=== PATIENT | male | born 1960 | race African-American/Black ===

== ENCOUNTER 2019-06-06 18:26 | Emergency (ER) | payer MEDICAID, OTHER ==
[~2019-06-06] VITALS: Ht 175.3 cm; Wt 100.0 kg
[2019-06-07] MEDS ORDERED: ONDANSETRON HCL 4MG/2ML INJ IV STA (00:38)
[2019-06-07] MEDS ORDERED: MORPHINE SULFATE 4 MG/ML CPJ (NOT FOR IM USE) IV STA (00:38)
[2019-06-07] MEDS ORDERED: SODIUM CHLORIDE 0.9% 1,000 ML IV ONE (00:38)
[2019-06-07] MEDS ORDERED: VANCOMYCIN 1 G PREMIX 200 ML IV ONE ×2 (00:45→19:30)
[2019-06-07] MEDS ORDERED: CLINDAMYCIN 600 MG in DEXTROSE 5% WATER 50 ML IV ONE (00:45)
[2019-06-07] MEDS ORDERED: PIPERACILLIN/TAZ 3.375G PREMIX 50 ML IV ONE ×2 (00:45→19:30)
[2019-06-07 01:24] LABS: HEMATOCRIT. 41.8 % (42.0-52.0); HEMOGLOBIN. 13.5 g/dL (14.0-18.0); MEAN CORPUSCULAR HEMOGLOBIN 27.8 pg (28.0-32.0); MEAN CORPUSCULAR VOLUME 86.1 fL (80.0-94.0); PLATELET 427 x1000/uL (130-400); RED BLOOD CELL COUNT 4.86 mill/uL (4.7-6.1); RED CELL DISTRIBUTION WIDTH 14.1 % (11.6-14.6)
[2019-06-07 01:42] LABS: CHLORIDE 97 mEq/L (98-107)
[2019-06-07 01:46] LABS: PLATELET ESTIMATE SLIGHTLY INCREASED
[2019-06-07 01:50] LABS: ETHANOL BLOOD < 10 mg/dL
[2019-06-07] MEDS ORDERED: CLINDAMYCIN 600 MG in SODIUM CHLORIDE 0.9% 50 ML IV NR (02:00)
[2019-06-07] MEDS ORDERED: AMLODIPINE 5MG TABLET PO ONE (13:45)
[2019-06-07 13:53] LABS: C REACTIVE PROTEIN QUANT > 190.0 mg/L (0.0-3.0)
[2019-06-08] MEDS ORDERED: AMLODIPINE 10MG TABLET PO NR (04:00)
[2019-06-08] MEDS ORDERED: VANCOMYCIN 1 G PREMIX 200 ML IV ONE (05:45)
[2019-06-08] MEDS ORDERED: PIPERACILLIN/TAZ 3.375G PREMIX 50 ML IV ONE (05:45)
[2019-06-08 12:13] LABS: *AMPHETAMINES SCREEN URINE NEGATIVE (NEGATIVE); *BARBITURATES SCREEN URINE NEGATIVE (NEGATIVE); CANNABINOID URINE SCREEN NEGATIVE (NEGATIVE); METHADONE URINE SCREEN NEGATIVE (NEGATIVE); OPIATES URINE SCREEN NEGATIVE (NEGATIVE); PHENCYCLIDINE URINE SCREEN NEGATIVE (NEGATIVE)
[2019-06-08 12:14] LABS: *BENZODIAZEPINES SCREEN URINE NEGATIVE (NEGATIVE); *COCAINE SCREEN URINE NEGATIVE (NEGATIVE)
[2019-06-08] MEDS ORDERED: CLONIDINE 0.2MG TABLET PO ONE (17:00)
[2019-06-08] MEDS ORDERED: PIPERACILLIN/TAZOBACTAM 3.375 G in DEXT 5% WATER 100 ML IV SCH (17:00)
[2019-06-08] MEDS ORDERED: VANCOMYCIN 1 G PREMIX 200 ML IV SCH (18:45)
[2019-06-08] MEDS ORDERED: INSULIN REGULAR (HUMULIN R) 300UNITS/3ML SUBCUT ONE (21:15)
[2019-06-08] MEDS ORDERED: CLONIDINE 0.1MG TABLET PO ONE (21:15)
[2019-06-08] MEDS ORDERED: ACETAMINOPHEN 325MG TABLET PO ONE (22:15)
[2019-06-08 23:34] VITALS: BP 164/94
== END 2019-06-08 23:49 | disposition short-term general hospital (02) ==
LOC: ER 18:26
DX: L03.011 Cellulitis of right finger (principal); M65.841 Other synovitis and tenosynovitis, right hand; R03.0 Elevated blood-pressure reading, without diagnosis of hypertension; R00.0 Tachycardia, unspecified
CPT/HCPCS: 36415; 80202; 80305; 82962; 93005; 96365; 96366; 96368; 96372; 96375; 99285; J1815; J2270; J2405; J2543; J3370; J3490; J7030; J7060; 96367; 99284

== ENCOUNTER 2022-09-16 21:34 | Inpatient (IN) | payer MEDICAID ==
[~2022-09-16] VITALS: Ht 172.7 cm; Wt 101.6 kg
[2022-09-17] MEDS: SODIUM CHLORIDE 0.9% 1,000 ML IV SCH (00:10)
[2022-09-17] MEDS ORDERED: VANCOMYCIN 1G PREMIX 200 ML IV ONE (03:45)
[2022-09-17] MEDS ORDERED: PIPERACILLIN/TAZ 3.375G PREMIX 50 ML IV ONE (03:45)
[2022-09-17 05:40] LABS: HEMATOCRIT. 32.3 % (42.0-52.0); HEMOGLOBIN. 10.7 g/dL (14.0-18.0); MEAN CORPUSCULAR HEMOGLOBIN 27.3 pg (28.0-32.0); MEAN CORPUSCULAR VOLUME 82.5 fL (80.0-94.0); MEAN PLATELET VOLUME 8.5 fl (7.4-10.4); PLATELET 556 x1000/uL (130-400); RED BLOOD CELL COUNT 3.92 mill/uL (4.7-6.1); RED CELL DISTRIBUTION WIDTH 14.5 % (11.6-14.6)
[2022-09-17 05:50] LABS: CHLORIDE 97 mEq/L (98-107)
[2022-09-17 06:09] LABS: PLATELET ESTIMATE INCREASED
[2022-09-17] MEDS ORDERED: SODIUM CHLORIDE 0.9% 1000ML BAG (SEPSIS BOLUS) IV ONE (06:15)
[2022-09-17 07:07] LABS: INR 1.2; PROTHROMBIN TIME 12.6 sec (9.6-11.0)
[2022-09-17] MEDS ORDERED: ACETAMINOPHEN 325MG TABLET PO PRN (09:30)
[2022-09-17] MEDS ORDERED: HYDROCODONE/ACETAMINOPHEN 5/325MG TABLET PO PRN (09:30)
[2022-09-17] MEDS ORDERED: CLONIDINE 0.1MG TABLET PO PRN (09:30)
[2022-09-17] MEDS ORDERED: IPRATROPIUM/ALBUTEROL 0.5-3(2.5)MG/3ML NEB HHN PRN (09:30)
[2022-09-17] MEDS ORDERED: MAGNESIUM/ALUMINUM HYDROXIDE/SIMETHICONE 30ML UDC PO PRN (09:30)
[2022-09-17] MEDS ORDERED: GUAIFENESIN 200MG/10ML SUGAR FREE UDC PO PRN (09:30)
[2022-09-17] MEDS ORDERED: DEXTROSE 50% WATER 50ML SYRINGE IV PRN (09:30)
[2022-09-17] MEDS ORDERED: ONDANSETRON HCL 4MG/2ML INJ IV PRN (09:30)
[2022-09-17] MEDS ORDERED: HYDROCODONE/ACETAMINOPHEN 7.5/325MG TABLET PO PRN (09:30)
[2022-09-17] MEDS ORDERED: INSULIN LISPRO 100 UNITS/ML SUBCUT NR (10:00)
[2022-09-17] MEDS ORDERED: NALOXONE HCL 0.4MG/ML VIAL IV PRN (10:15)
[2022-09-17] MEDS ORDERED: PIPERACILLIN/TAZOBACTAM 3.375 G in DEXTROSE 5% WATER 50 ML IV SCH (12:01)
[2022-09-17 12:17] LABS: PHOSPHORUS 3.9 mg/dL (2.5-4.9); T4 FREE 1.22 ng/dL (0.76-1.46)
[2022-09-17 12:34] LABS: FOLIC ACID (FOLATE) SERUM 8.9 ng/mL (>5.38)
[2022-09-17 13:00] VITALS: BP 160/96
[2022-09-17] MEDS ORDERED: VANCOMYCIN 1G PREMIX 200 ML IV SCH (13:00)
[2022-09-17] MEDS: BLOOD SUGAR DIAGNOSTIC STRIP TEST SCH ×3 (13:00→21:40)
[2022-09-17] MEDS: INSULIN LISPRO 100 UNITS/ML SUBCUT SCH ×2 (13:11→22:00)
[2022-09-17 14:00] VITALS: BP 160/90
[2022-09-17] MEDS ORDERED: VANCOMYCIN 1G PREMIX 200 ML IV NR ×2 (14:00→14:30)
[2022-09-17] MEDS: PIPERACILLIN/TAZOBACTAM 3.375 G in DEXTROSE 5% WATER 50 ML IV SCH (14:30)
[2022-09-17 16:00] VITALS: BP 163/83
[2022-09-17] MEDS ORDERED: IOHEXOL-350 100 ML BOTTLE ONE (16:06)
[2022-09-17 20:00] VITALS: BP 145/73
[2022-09-17] MEDS: FAMOTIDINE 20MG TABLET PO SCH (21:21)
[2022-09-17] MEDS: ATORVASTATIN CALCIUM 40MG TABLET PO SCH (21:21)
[2022-09-18] MEDS: PIPERACILLIN/TAZOBACTAM 3.375 G in DEXTROSE 5% WATER 50 ML IV SCH ×3 (00:30→23:10)
[2022-09-18 04:00] VITALS: BP 161/86
[2022-09-18 07:18] LABS: BASOPHILS % 0.5 % (0.0-2.0); EOSINOPHILS % 0.1 % (0.0-5.0); HEMATOCRIT. 31.9 % (42.0-52.0); HEMOGLOBIN. 10.5 g/dL (14.0-18.0); LYMPHOCYTES % 8.2 % (20.0-50.0); MEAN CORPUSCULAR HEMOGLOBIN 27.2 pg (28.0-32.0); MEAN CORPUSCULAR VOLUME 82.7 fL (80.0-94.0); MEAN PLATELET VOLUME 8.3 fl (7.4-10.4); MONOCYTES % 7.2 % (2.0-8.0); PLATELET 563 x1000/uL (130-400); RED BLOOD CELL COUNT 3.86 mill/uL (4.7-6.1); RED CELL DISTRIBUTION WIDTH 13.9 % (11.6-14.6)
[2022-09-18] MEDS: BLOOD SUGAR DIAGNOSTIC STRIP TEST SCH ×4 (07:42→21:23)
[2022-09-18 08:00] VITALS: BP 164/83
[2022-09-18 08:29] LABS: CHLORIDE 99 mEq/L (98-107)
[2022-09-18] MEDS ORDERED: MORPHINE SULFATE 2 MG/ML CPJ (NOT FOR IM USE) IV SCH (08:30)
[2022-09-18 08:41] LABS: HDL CHOLESTEROL 36 mg/dL (40-59); LDL CHOLESTEROL 56 mg/dL (5-100); PHOSPHORUS 3.1 mg/dL (2.5-4.9)
[2022-09-18] MEDS: VANCOMYCIN 1.25GM PMX (XELLIA) 250 ML IV SCH ×2 (08:41→09:18)
[2022-09-18] MEDS ORDERED: POLYETHYLENE GLYCOL 3350 (17GM) 1 DOSE PACK PO PRN (08:45)
[2022-09-18] MEDS ORDERED: ASPIRIN 81MG EC TABLET PO SCH (09:00)
[2022-09-18] MEDS ORDERED: DEXTROSE 50% WATER 50ML SYRINGE IV PRN (09:00)
[2022-09-18] MEDS: INSULIN LISPRO 100 UNITS/ML SUBCUT SCH ×4 (09:23→23:12)
[2022-09-18] MEDS: FAMOTIDINE 20MG TABLET PO SCH ×2 (09:24→21:24)
[2022-09-18] MEDS ORDERED: LIDOCAINE HCL 1% 20ML VIAL (Pyxis) INJ MC ONE (11:00)
[2022-09-18 12:00] VITALS: BP 120/72
[2022-09-18] MEDS ORDERED: ALBUTEROL (0.083%) 2.5MG/3ML NEB HHN PRN (14:30)
[2022-09-18] MEDS ORDERED: IPRATROPIUM BROMIDE (0.02%) 0.5MG/2.5ML NEB HHN PRN (14:30)
[2022-09-18 16:00] VITALS: BP 159/92
[2022-09-18] MEDS ORDERED: MORPHINE SULFATE 2 MG/ML CPJ (NOT FOR IM USE) IV NR (17:00)
[2022-09-18] MEDS: ACETAMINOPHEN 325MG TABLET PO PRN (21:24)
[2022-09-18] MEDS: ATORVASTATIN CALCIUM 40MG TABLET PO SCH (21:24)
[2022-09-19] MEDS: SODIUM CHLORIDE 0.9% 1,000 ML IV SCH ×2 (02:12→17:12)
[2022-09-19 03:35] LABS: BASOPHILS % 0.2 % (0.0-2.0); CHLORIDE 98 mEq/L (98-107); EOSINOPHILS % 0.1 % (0.0-5.0); HEMATOCRIT. 31.9 % (42.0-52.0); HEMOGLOBIN. 10.7 g/dL (14.0-18.0); MEAN CORPUSCULAR HEMOGLOBIN 27.8 pg (28.0-32.0); MEAN PLATELET VOLUME 8.3 fl (7.4-10.4); MONOCYTES % 8.7 % (2.0-8.0); PLATELET 513 x1000/uL (130-400); RED BLOOD CELL COUNT 3.84 mill/uL (4.7-6.1); RED CELL DISTRIBUTION WIDTH 14.4 % (11.6-14.6)
[2022-09-19 03:39] LABS: INR 1.2; PROTHROMBIN TIME 12.7 sec (9.6-11.0)
[2022-09-19 04:00] VITALS: BP 148/80
[2022-09-19] MEDS: PIPERACILLIN/TAZOBACTAM 3.375 G in DEXTROSE 5% WATER 50 ML IV SCH ×3 (05:35→22:26)
[2022-09-19] MEDS: INSULIN LISPRO 100 UNITS/ML SUBCUT SCH ×4 (07:14→23:18)
[2022-09-19] MEDS: BLOOD SUGAR DIAGNOSTIC STRIP TEST SCH ×4 (07:20→21:33)
[2022-09-19] MEDS ORDERED: HEPARIN 1000 UNITS/ML 10ML ONE (07:41)
[2022-09-19] MEDS ORDERED: IODIXANOL 320MG/ML 100 ML BOTTLE IV ONE (07:41)
[2022-09-19] MEDS ORDERED: LIDOCAINE HCL 1% 20ML VIAL (Pyxis) INJ ONE (07:41)
[2022-09-19] MEDS ORDERED: FENTANYL CITRATE/PF 50MCG/ML 2ML VIAL ONE ×2 (07:52→09:39)
[2022-09-19] MEDS ORDERED: MIDAZOLAM HCL 2 MG/2 ML VIAL ONE ×2 (07:53→09:40)
[2022-09-19 08:00] VITALS: BP 175/89
[2022-09-19] MEDS ORDERED: VANCOMYCIN HCL 1 GM/VIAL ONE (09:21)
[2022-09-19] MEDS ORDERED: LIDOCAINE HCL 1% 10 MG/ML 10ML VIAL ONE ×2 (09:21→09:39)
[2022-09-19] MEDS ORDERED: POLYMYXIN B SULFATE 500000 UNITS/VIAL ONE (09:21)
[2022-09-19] MEDS ORDERED: BUPIVACAINE HCL/PF 0.5% (5MG/ML) 10ML ONE (09:21)
[2022-09-19] MEDS ORDERED: PROPOFOL 200MG/20ML VIAL IV ONE (09:39)
[2022-09-19] MEDS ORDERED: HYDROMORPHONE HCL/PF 2MG/ML CPJ ONE (10:35)
[2022-09-19] MEDS ORDERED: ONDANSETRON HCL 4MG/2ML INJ IV PRN (11:15)
[2022-09-19] MEDS ORDERED: MEPERIDINE HCL/PF 25MG/ML CPJ IV PRN (11:30)
[2022-09-19] MEDS ORDERED: HYDROMORPHONE HCL/PF 2MG/ML CPJ IV PRN (11:30)
[2022-09-19] MEDS ORDERED: LABETALOL 5MG/ML SYR 20 MG/4 ML SYRINGE IV PRN (11:30)
[2022-09-19] MEDS: VANCOMYCIN 1.25GM PMX (XELLIA) 250 ML IV SCH (14:17)
[2022-09-19 14:46] VITALS: BP 131/83
[2022-09-19 16:00] VITALS: BP 130/76
[2022-09-19] MEDS: FAMOTIDINE 20MG TABLET PO SCH (21:00)
[2022-09-19] MEDS: ATORVASTATIN CALCIUM 40MG TABLET PO SCH (21:08)
[2022-09-19] MEDS: INSULIN GLARGINE 100 UNITS/ML SUBCUT SCH (23:18)
[2022-09-20] MEDS: PIPERACILLIN/TAZOBACTAM 3.375 G in DEXTROSE 5% WATER 50 ML IV SCH ×3 (06:00→21:56)
[2022-09-20 06:53] LABS: HEMATOCRIT. 26.9 % (42.0-52.0); HEMOGLOBIN. 8.6 g/dL (14.0-18.0); MEAN CORPUSCULAR HEMOGLOBIN 26.5 pg (28.0-32.0); MEAN CORPUSCULAR VOLUME 82.6 fL (80.0-94.0); MEAN PLATELET VOLUME 8.6 fl (7.4-10.4); PLATELET 470 x1000/uL (130-400); RED BLOOD CELL COUNT 3.25 mill/uL (4.7-6.1); RED CELL DISTRIBUTION WIDTH 14.3 % (11.6-14.6)
[2022-09-20] MEDS: BLOOD SUGAR DIAGNOSTIC STRIP TEST SCH ×4 (07:04→21:00)
[2022-09-20 07:19] LABS: CHLORIDE 102 mEq/L (98-107)
[2022-09-20 07:29] LABS: PHOSPHORUS 2.5 mg/dL (2.5-4.9)
[2022-09-20 08:00] VITALS: BP 115/64
[2022-09-20] MEDS: FAMOTIDINE 20MG TABLET PO SCH ×2 (08:29→21:47)
[2022-09-20] MEDS: SODIUM CHLORIDE 0.9% 1,000 ML IV SCH ×2 (08:30→18:35)
[2022-09-20] MEDS: INSULIN LISPRO 100 UNITS/ML SUBCUT SCH ×4 (08:57→21:59)
[2022-09-20] MEDS ORDERED: IOHEXOL-300 100 ML BOTTLE ONE (11:17)
[2022-09-20] MEDS: VANCOMYCIN 1.25GM PMX (XELLIA) 250 ML IV SCH ×3 (12:57→23:58)
[2022-09-20 14:10] LABS: PLATELET ESTIMATE INCREASED
[2022-09-20 20:00] VITALS: BP 127/65
[2022-09-20] MEDS: ATORVASTATIN CALCIUM 40MG TABLET PO SCH (21:47)
[2022-09-20] MEDS: INSULIN GLARGINE 100 UNITS/ML SUBCUT SCH (21:58)
[2022-09-20] MEDS: ACETAMINOPHEN 325MG TABLET PO PRN (23:58)
[2022-09-21] VITALS: BP 144/86
[2022-09-21 04:00] VITALS: BP 143/81
[2022-09-21] MEDS: PIPERACILLIN/TAZOBACTAM 3.375 G in DEXTROSE 5% WATER 50 ML IV SCH ×3 (07:06→21:57)
[2022-09-21 08:00] VITALS: BP 126/66
[2022-09-21] MEDS: BLOOD SUGAR DIAGNOSTIC STRIP TEST SCH ×4 (08:00→21:00)
[2022-09-21] MEDS: SODIUM CHLORIDE 0.9% 1,000 ML IV SCH ×2 (08:52→20:34)
[2022-09-21] MEDS: FAMOTIDINE 20MG TABLET PO SCH ×2 (08:53→21:57)
[2022-09-21] MEDS: ENOXAPARIN 40MG/0.4ML SYR SUBCUT SCH ×2 (09:02→09:04)
[2022-09-21] MEDS: INSULIN LISPRO 100 UNITS/ML SUBCUT SCH ×4 (09:30→22:10)
[2022-09-21 12:00] VITALS: BP 137/63
[2022-09-21] MEDS: VANCOMYCIN 1.25GM PMX (XELLIA) 250 ML IV SCH (13:03)
[2022-09-21 16:00] VITALS: BP 154/84
[2022-09-21] MEDS: ATORVASTATIN CALCIUM 40MG TABLET PO SCH (21:57)
[2022-09-21] MEDS: INSULIN GLARGINE 100 UNITS/ML SUBCUT SCH (22:11)
[2022-09-22] VITALS: BP 124/57
[2022-09-22] MEDS: VANCOMYCIN 1.25GM PMX (XELLIA) 250 ML IV SCH ×2 (00:43→13:09)
[2022-09-22 04:00] VITALS: BP 165/80
[2022-09-22] MEDS: PIPERACILLIN/TAZOBACTAM 3.375 G in DEXTROSE 5% WATER 50 ML IV SCH (05:37)
[2022-09-22 06:20] LABS: HEMATOCRIT 26.5 % (42.0-52.0); HEMOGLOBIN 8.7 g/dL (14.0-18.0); MEAN CORPUSCULAR HEMOGLOBIN 27.1 pg (28.0-32.0); MEAN CORPUSCULAR VOLUME 82.5 fL (80.0-94.0); PLATELET 487 x1000/uL (130-400); RED BLOOD CELL COUNT 3.21 mill/uL (4.7-6.1); RED CELL DISTRIBUTION WIDTH 14.1 % (11.6-14.6)
[2022-09-22 06:51] LABS: CHLORIDE 105 mEq/L (98-107)
[2022-09-22] MEDS: BLOOD SUGAR DIAGNOSTIC STRIP TEST SCH ×4 (07:20→21:00)
[2022-09-22 08:00] VITALS: BP 144/64
[2022-09-22] MEDS: FAMOTIDINE 20MG TABLET PO SCH ×2 (08:45→21:00)
[2022-09-22] MEDS: ENOXAPARIN 40MG/0.4ML SYR SUBCUT SCH (08:45)
[2022-09-22] MEDS: INSULIN LISPRO 100 UNITS/ML SUBCUT SCH ×4 (08:54→21:00)
[2022-09-22] MEDS: SODIUM CHLORIDE 0.9% 1,000 ML IV SCH ×2 (09:54)
[2022-09-22 12:00] VITALS: BP 156/85
[2022-09-22] MEDS ORDERED: IPRATROPIUM/ALBUTEROL 0.5-3(2.5)MG/3ML NEB HHN PRN (15:15)
[2022-09-22 16:00] VITALS: BP 123/84
[2022-09-22] MEDS: CEFTRIAXONE 2GM DUPLEX 50 ML IV SCH (16:00)
[2022-09-22 20:00] VITALS: BP 155/81
[2022-09-22] MEDS: ATORVASTATIN CALCIUM 40MG TABLET PO SCH (21:00)
[2022-09-22] MEDS: INSULIN GLARGINE 100 UNITS/ML SUBCUT SCH (21:37)
[2022-09-23] VITALS: BP 158/84
[2022-09-23 04:00] VITALS: BP_SYST 144; BP_SYST 156; BP_DIAS 53; BP_DIAS 64
[2022-09-23] MEDS: BLOOD SUGAR DIAGNOSTIC STRIP TEST SCH ×4 (07:20→21:06)
[2022-09-23] MEDS: INSULIN LISPRO 100 UNITS/ML SUBCUT SCH ×4 (07:50→21:06)
[2022-09-23 08:00] VITALS: BP 159/88
[2022-09-23] MEDS: ENOXAPARIN 30MG/0.3ML SYR SUBCUT SCH ×2 (09:51→21:02)
[2022-09-23] MEDS: FAMOTIDINE 20MG TABLET PO SCH ×2 (09:51→21:00)
[2022-09-23] MEDS: SODIUM CHLORIDE 0.9% 1,000 ML IV SCH (12:34)
[2022-09-23] MEDS: CEFTRIAXONE 2GM DUPLEX 50 ML IV SCH (18:30)
[2022-09-23 20:00] VITALS: BP 154/69
[2022-09-23] MEDS: ATORVASTATIN CALCIUM 40MG TABLET PO SCH (21:01)
[2022-09-23] MEDS: INSULIN GLARGINE 100 UNITS/ML SUBCUT SCH (21:06)
[2022-09-24] VITALS: BP 152/77
[2022-09-24] MEDS: SODIUM CHLORIDE 0.9% 1,000 ML IV SCH ×2 (01:54→15:14)
[2022-09-24 04:00] VITALS: BP 152/76
[2022-09-24] MEDS: BLOOD SUGAR DIAGNOSTIC STRIP TEST SCH ×4 (07:37→21:00)
[2022-09-24 08:00] VITALS: BP 154/91
[2022-09-24] MEDS: INSULIN LISPRO 100 UNITS/ML SUBCUT SCH ×4 (08:03→21:00)
[2022-09-24] MEDS: FAMOTIDINE 20MG TABLET PO SCH ×2 (09:08→21:59)
[2022-09-24] MEDS: ENOXAPARIN 30MG/0.3ML SYR SUBCUT SCH ×2 (09:09→21:00)
[2022-09-24 12:00] VITALS: BP 127/75
[2022-09-24 16:00] VITALS: BP 160/89
[2022-09-24] MEDS: CEFTRIAXONE 2GM DUPLEX 50 ML IV SCH (16:00)
[2022-09-24 20:00] VITALS: BP 135/100
[2022-09-24] MEDS: ATORVASTATIN CALCIUM 40MG TABLET PO SCH (21:00)
[2022-09-24 21:51] LABS: HEMATOCRIT 29.5 % (42.0-52.0); HEMOGLOBIN 9.4 g/dL (14.0-18.0); MEAN CORPUSCULAR HEMOGLOBIN 26.4 pg (28.0-32.0); PLATELET 634 x1000/uL (130-400); RED BLOOD CELL COUNT 3.56 mill/uL (4.7-6.1); RED CELL DISTRIBUTION WIDTH 14.6 % (11.6-14.6)
[2022-09-24 21:55] LABS: CHLORIDE 101 mEq/L (98-107)
[2022-09-24] MEDS: INSULIN GLARGINE 100 UNITS/ML SUBCUT SCH (22:32)
[2022-09-25 04:00] VITALS: BP 128/85
[2022-09-25] MEDS: SODIUM CHLORIDE 0.9% 1,000 ML IV SCH ×2 (04:34→17:54)
[2022-09-25] MEDS: BLOOD SUGAR DIAGNOSTIC STRIP TEST SCH ×4 (07:20→21:00)
[2022-09-25 08:00] VITALS: BP 130/72
[2022-09-25] MEDS: ENOXAPARIN 30MG/0.3ML SYR SUBCUT SCH ×2 (08:21→20:47)
[2022-09-25] MEDS: FAMOTIDINE 20MG TABLET PO SCH ×2 (08:21→20:47)
[2022-09-25] MEDS: INSULIN LISPRO 100 UNITS/ML SUBCUT SCH ×4 (08:24→21:29)
[2022-09-25] MEDS: ACETAMINOPHEN 325MG TABLET PO PRN (08:25)
[2022-09-25 12:00] VITALS: BP 142/84
[2022-09-25 16:00] VITALS: BP 106/59
[2022-09-25] MEDS: CEFTRIAXONE 2GM DUPLEX 50 ML IV SCH (16:00)
[2022-09-25 20:00] VITALS: BP 129/81
[2022-09-25] MEDS: ATORVASTATIN CALCIUM 40MG TABLET PO SCH (20:47)
[2022-09-25] MEDS: INSULIN GLARGINE 100 UNITS/ML SUBCUT SCH (21:39)
[2022-09-25 21:53] LABS: HEMATOCRIT 28.3 % (42.0-52.0); HEMOGLOBIN 9.1 g/dL (14.0-18.0); MEAN CORPUSCULAR VOLUME 83.7 fL (80.0-94.0); PLATELET 690 x1000/uL (130-400); RED BLOOD CELL COUNT 3.38 mill/uL (4.7-6.1); RED CELL DISTRIBUTION WIDTH 14.5 % (11.6-14.6)
[2022-09-25 22:02] LABS: CHLORIDE 99 mEq/L (98-107)
[2022-09-25 22:10] LABS: PHOSPHORUS 3.4 mg/dL (2.5-4.9)
[2022-09-26] VITALS: BP 129/81
[2022-09-26] MEDS: SODIUM CHLORIDE 0.9% 1,000 ML IV SCH ×2 (07:14→20:34)
[2022-09-26] MEDS: INSULIN LISPRO 100 UNITS/ML SUBCUT SCH ×5 (07:50→17:50)
[2022-09-26] MEDS: ENOXAPARIN 30MG/0.3ML SYR SUBCUT SCH (09:00)
[2022-09-26] MEDS: FAMOTIDINE 20MG TABLET PO SCH (09:00)
[2022-09-26] MEDS: BLOOD SUGAR DIAGNOSTIC STRIP TEST SCH ×4 (11:43→21:00)
[2022-09-26 12:00] VITALS: BP 127/80
[2022-09-26] MEDS: CEFTRIAXONE 2 G in DEXTROSE 5% WATER 50 ML IV SCH (14:00)
[2022-09-26 16:00] VITALS: BP 133/68
[2022-09-27] MEDS: FAMOTIDINE 20MG TABLET PO SCH ×3 (00:14→20:53)
[2022-09-27] MEDS: ATORVASTATIN CALCIUM 40MG TABLET PO SCH ×2 (00:14→20:53)
[2022-09-27] MEDS: ENOXAPARIN 30MG/0.3ML SYR SUBCUT SCH ×3 (00:14→20:56)
[2022-09-27] MEDS: INSULIN GLARGINE 100 UNITS/ML SUBCUT SCH ×2 (00:24→21:58)
[2022-09-27] MEDS: INSULIN LISPRO 100 UNITS/ML SUBCUT SCH ×8 (00:26→20:54)
[2022-09-27] MEDS: BLOOD SUGAR DIAGNOSTIC STRIP TEST SCH ×4 (07:20→20:57)
[2022-09-27 08:00] VITALS: BP 134/83
[2022-09-27] MEDS: SODIUM CHLORIDE 0.9% 1,000 ML IV SCH ×2 (09:54→23:14)
[2022-09-27] MEDS: CEFTRIAXONE 2 G in DEXTROSE 5% WATER 50 ML IV SCH (14:00)
[2022-09-28] MEDS: BLOOD SUGAR DIAGNOSTIC STRIP TEST SCH ×4 (07:20→21:00)
[2022-09-28] MEDS: INSULIN LISPRO 100 UNITS/ML SUBCUT SCH ×7 (07:20→21:00)
[2022-09-28 08:00] VITALS: BP 140/78
[2022-09-28] MEDS: ENOXAPARIN 30MG/0.3ML SYR SUBCUT SCH ×2 (09:00→21:00)
[2022-09-28] MEDS: FAMOTIDINE 20MG TABLET PO SCH (09:14)
[2022-09-28 12:00] VITALS: BP 138/75
[2022-09-28] MEDS: SODIUM CHLORIDE 0.9% 1,000 ML IV SCH (12:34)
[2022-09-28] MEDS: CEFTRIAXONE 2 G in DEXTROSE 5% WATER 50 ML IV SCH (14:08)
[2022-09-28 16:00] VITALS: BP 138/78
[2022-09-28] MEDS: METFORMIN HCL 500MG TABLET PO SCH (17:50)
[2022-09-28] MEDS: INSULIN GLARGINE 100 UNITS/ML SUBCUT SCH (22:00)
[2022-09-29] MEDS: FAMOTIDINE 20MG TABLET PO SCH ×3 (00:19→21:15)
[2022-09-29] MEDS: ATORVASTATIN CALCIUM 40MG TABLET PO SCH ×2 (00:19→21:15)
[2022-09-29] MEDS: INSULIN LISPRO 100 UNITS/ML SUBCUT SCH ×7 (07:20→21:00)
[2022-09-29] MEDS: BLOOD SUGAR DIAGNOSTIC STRIP TEST SCH ×4 (07:20→21:23)
[2022-09-29] MEDS: METFORMIN HCL 500MG TABLET PO SCH ×2 (07:50→17:38)
[2022-09-29 08:00] VITALS: BP 153/81
[2022-09-29] MEDS: ENOXAPARIN 30MG/0.3ML SYR SUBCUT SCH ×2 (09:00→21:15)
[2022-09-29] MEDS: CEFTRIAXONE 2 G in DEXTROSE 5% WATER 50 ML IV SCH (13:39)
[2022-09-29] MEDS: SODIUM CHLORIDE 0.9% 1,000 ML IV SCH (15:14)
[2022-09-29 16:00] VITALS: BP 142/88
[2022-09-29 17:05] LABS: HEMATOCRIT 32.6 % (42.0-52.0); HEMOGLOBIN 10.4 g/dL (14.0-18.0); MEAN CORPUSCULAR HEMOGLOBIN 26.8 pg (28.0-32.0); PLATELET 875 x1000/uL (130-400); RED BLOOD CELL COUNT 3.88 mill/uL (4.7-6.1); RED CELL DISTRIBUTION WIDTH 14.7 % (11.6-14.6)
[2022-09-29 17:24] LABS: CHLORIDE 98 mEq/L (98-107)
[2022-09-29] MEDS: INSULIN GLARGINE 100 UNITS/ML SUBCUT SCH (21:25)
[2022-09-30] MEDS: INSULIN LISPRO 100 UNITS/ML SUBCUT SCH ×7 (06:44→21:00)
[2022-09-30] MEDS: BLOOD SUGAR DIAGNOSTIC STRIP TEST SCH ×4 (06:44→21:00)
[2022-09-30 08:00] VITALS: BP 118/57
[2022-09-30] MEDS: ACETAMINOPHEN 325MG TABLET PO PRN (08:34)
[2022-09-30] MEDS: FAMOTIDINE 20MG TABLET PO SCH ×2 (08:34→21:52)
[2022-09-30] MEDS: METFORMIN HCL 500MG TABLET PO SCH ×2 (08:34→17:38)
[2022-09-30] MEDS: ENOXAPARIN 30MG/0.3ML SYR SUBCUT SCH ×2 (08:34→21:52)
[2022-09-30] MEDS: DOCUSATE SODIUM 100MG CAPSULE PO PRN (08:34)
[2022-09-30 12:00] VITALS: BP 135/87
[2022-09-30] MEDS ORDERED: LIDOCAINE HCL 1% 10 MG/ML 10ML VIAL ONE (13:16)
[2022-09-30] MEDS: CEFTRIAXONE 2 G in DEXTROSE 5% WATER 50 ML IV SCH (14:34)
[2022-09-30] MEDS: SODIUM CHLORIDE 0.9% 1,000 ML IV SCH (15:30)
[2022-09-30 16:00] VITALS: BP 149/77
[2022-09-30 20:00] VITALS: BP 117/60
[2022-09-30] MEDS: ATORVASTATIN CALCIUM 40MG TABLET PO SCH (21:52)
[2022-09-30] MEDS: INSULIN GLARGINE 100 UNITS/ML SUBCUT SCH (22:00)
[2022-10-01] MEDS: INSULIN LISPRO 100 UNITS/ML SUBCUT SCH ×7 (06:58→22:32)
[2022-10-01] MEDS: METFORMIN HCL 500MG TABLET PO SCH ×2 (06:58→17:50)
[2022-10-01] MEDS: BLOOD SUGAR DIAGNOSTIC STRIP TEST SCH ×4 (06:58→21:00)
[2022-10-01] MEDS: FAMOTIDINE 20MG TABLET PO SCH ×2 (09:00→21:24)
[2022-10-01] MEDS: ENOXAPARIN 30MG/0.3ML SYR SUBCUT SCH ×3 (09:00→21:25)
[2022-10-01 16:00] VITALS: BP 127/66
[2022-10-01] MEDS: CEFTRIAXONE 2 G in DEXTROSE 5% WATER 50 ML IV SCH (16:18)
[2022-10-01] MEDS: ATORVASTATIN CALCIUM 40MG TABLET PO SCH (21:24)
[2022-10-01] MEDS: INSULIN GLARGINE 100 UNITS/ML SUBCUT SCH (22:50)
[2022-10-02] VITALS: BP 134/77
[2022-10-02] MEDS: INSULIN LISPRO 100 UNITS/ML SUBCUT SCH ×7 (07:20→21:59)
[2022-10-02] MEDS: BLOOD SUGAR DIAGNOSTIC STRIP TEST SCH ×4 (07:20→21:00)
[2022-10-02] MEDS: METFORMIN HCL 500MG TABLET PO SCH ×2 (07:50→17:56)
[2022-10-02] MEDS: ENOXAPARIN 30MG/0.3ML SYR SUBCUT SCH ×2 (09:18→21:21)
[2022-10-02] MEDS: FAMOTIDINE 20MG TABLET PO SCH ×2 (09:18→21:21)
[2022-10-02] MEDS: SODIUM CHLORIDE 0.9% 1,000 ML IV SCH (09:54)
[2022-10-02] MEDS: CEFTRIAXONE 2 G in DEXTROSE 5% WATER 50 ML IV SCH (14:00)
[2022-10-02 20:00] VITALS: BP 150/84
[2022-10-02] MEDS: ATORVASTATIN CALCIUM 40MG TABLET PO SCH (21:21)
[2022-10-02] MEDS: INSULIN GLARGINE 100 UNITS/ML SUBCUT SCH (21:59)
[2022-10-03] MEDS: BLOOD SUGAR DIAGNOSTIC STRIP TEST SCH ×4 (07:20→21:31)
[2022-10-03] MEDS: INSULIN LISPRO 100 UNITS/ML SUBCUT SCH ×7 (07:20→20:25)
[2022-10-03] MEDS: METFORMIN HCL 500MG TABLET PO SCH ×2 (09:49→17:55)
[2022-10-03] MEDS: ENOXAPARIN 30MG/0.3ML SYR SUBCUT SCH ×2 (09:49→20:26)
[2022-10-03] MEDS: FAMOTIDINE 20MG TABLET PO SCH ×2 (09:49→20:25)
[2022-10-03] MEDS: SODIUM CHLORIDE 0.9% 1,000 ML IV SCH (12:34)
[2022-10-03] MEDS: CEFTRIAXONE 2 G in DEXTROSE 5% WATER 50 ML IV SCH (14:00)
[2022-10-03] MEDS: ATORVASTATIN CALCIUM 40MG TABLET PO SCH (20:25)
[2022-10-03] MEDS: INSULIN GLARGINE 100 UNITS/ML SUBCUT SCH (21:35)
[2022-10-04] MEDS: SODIUM CHLORIDE 0.9% 1,000 ML IV SCH ×2 (01:54→15:14)
[2022-10-04] MEDS: INSULIN LISPRO 100 UNITS/ML SUBCUT SCH ×8 (07:06→22:14)
[2022-10-04] MEDS: BLOOD SUGAR DIAGNOSTIC STRIP TEST SCH ×4 (07:06→21:00)
[2022-10-04] MEDS: ENOXAPARIN 30MG/0.3ML SYR SUBCUT SCH ×2 (08:47→22:16)
[2022-10-04] MEDS: FAMOTIDINE 20MG TABLET PO SCH ×2 (08:48→22:13)
[2022-10-04] MEDS: METFORMIN HCL 500MG TABLET PO SCH ×2 (08:48→12:47)
[2022-10-04] MEDS: CEFTRIAXONE 2 G in DEXTROSE 5% WATER 50 ML IV SCH ×2 (13:56→14:00)
[2022-10-04] MEDS: ATORVASTATIN CALCIUM 40MG TABLET PO SCH (21:00)
[2022-10-04] MEDS: INSULIN GLARGINE 100 UNITS/ML SUBCUT SCH (22:00)
[2022-10-05] MEDS: SODIUM CHLORIDE 0.9% 1,000 ML IV SCH ×2 (04:31→17:44)
[2022-10-05] MEDS: BLOOD SUGAR DIAGNOSTIC STRIP TEST SCH ×4 (06:17→21:24)
[2022-10-05] MEDS: INSULIN LISPRO 100 UNITS/ML SUBCUT SCH ×6 (07:50→21:00)
[2022-10-05] MEDS: METFORMIN HCL 500MG TABLET PO SCH ×2 (09:00→18:00)
[2022-10-05] MEDS: ENOXAPARIN 30MG/0.3ML SYR SUBCUT SCH ×2 (09:07→20:37)
[2022-10-05] MEDS: FAMOTIDINE 20MG TABLET PO SCH ×2 (09:07→20:37)
[2022-10-05] MEDS: CEFTRIAXONE 2 G in DEXTROSE 5% WATER 50 ML IV SCH (14:00)
[2022-10-05] MEDS: ATORVASTATIN CALCIUM 40MG TABLET PO SCH (20:37)
[2022-10-05] MEDS: INSULIN GLARGINE 100 UNITS/ML SUBCUT SCH (21:27)
[2022-10-06 06:29] LABS: CHLORIDE 106 mEq/L (98-107)
[2022-10-06 06:33] LABS: PHOSPHORUS 3.8 mg/dL (2.5-4.9)
[2022-10-06] MEDS: SODIUM CHLORIDE 0.9% 1,000 ML IV SCH ×2 (06:46→20:34)
[2022-10-06 06:58] LABS: BASOPHILS % 0.4 % (0.0-2.0); EOSINOPHILS % 2.5 % (0.0-5.0); HEMATOCRIT. 28.9 % (42.0-52.0); HEMOGLOBIN. 9.5 g/dL (14.0-18.0); LYMPHOCYTES % 33.9 % (20.0-50.0); MEAN CORPUSCULAR HEMOGLOBIN 27.2 pg (28.0-32.0); MEAN CORPUSCULAR VOLUME 82.5 fL (80.0-94.0); MEAN PLATELET VOLUME 7.9 fl (7.4-10.4); MONOCYTES % 8.6 % (2.0-8.0); NEUTROPHILS % 54.6 % (40.0-76.0); PLATELET 538 x1000/uL (130-400); RED CELL DISTRIBUTION WIDTH 14.6 % (11.6-14.6)
[2022-10-06] MEDS: INSULIN LISPRO 100 UNITS/ML SUBCUT SCH ×7 (07:20→21:00)
[2022-10-06] MEDS: BLOOD SUGAR DIAGNOSTIC STRIP TEST SCH ×4 (07:20→21:00)
[2022-10-06] MEDS: METFORMIN HCL 500MG TABLET PO SCH ×2 (07:50→17:53)
[2022-10-06] MEDS: FAMOTIDINE 20MG TABLET PO SCH ×2 (09:19→23:35)
[2022-10-06] MEDS: ACETAMINOPHEN 325MG TABLET PO PRN (09:19)
[2022-10-06] MEDS: DOCUSATE SODIUM 100MG CAPSULE PO PRN (09:20)
[2022-10-06] MEDS: ENOXAPARIN 30MG/0.3ML SYR SUBCUT SCH ×2 (09:22→21:00)
[2022-10-06 12:00] VITALS: BP 144/77
[2022-10-06] MEDS: CEFTRIAXONE 2 G in DEXTROSE 5% WATER 50 ML IV SCH (14:33)
[2022-10-06 16:00] VITALS: BP 154/87
[2022-10-06 20:00] VITALS: BP 149/85
[2022-10-06] MEDS: ATORVASTATIN CALCIUM 40MG TABLET PO SCH (21:00)
[2022-10-06] MEDS: INSULIN GLARGINE 100 UNITS/ML SUBCUT SCH (22:00)
[2022-10-07] VITALS: BP 134/76
[2022-10-07 04:00] VITALS: BP 129/70
[2022-10-07] MEDS: BLOOD SUGAR DIAGNOSTIC STRIP TEST SCH ×4 (07:20→21:00)
[2022-10-07] MEDS: INSULIN LISPRO 100 UNITS/ML SUBCUT SCH ×7 (07:20→21:00)
[2022-10-07] MEDS: METFORMIN HCL 500MG TABLET PO SCH ×2 (07:50→17:49)
[2022-10-07] MEDS: ENOXAPARIN 30MG/0.3ML SYR SUBCUT SCH ×2 (09:00→21:17)
[2022-10-07] MEDS: FAMOTIDINE 20MG TABLET PO SCH ×2 (09:00→21:17)
[2022-10-07] MEDS: SODIUM CHLORIDE 0.9% 1,000 ML IV SCH ×2 (09:54→23:37)
[2022-10-07 12:00] VITALS: BP 118/82
[2022-10-07] MEDS: CEFTRIAXONE 2 G in DEXTROSE 5% WATER 50 ML IV SCH (14:33)
[2022-10-07 20:00] VITALS: BP 137/62
[2022-10-07] MEDS: ATORVASTATIN CALCIUM 40MG TABLET PO SCH (21:16)
[2022-10-07] MEDS: INSULIN GLARGINE 100 UNITS/ML SUBCUT SCH (22:00)
[2022-10-08] VITALS: BP 143/67
[2022-10-08 04:00] VITALS: BP 137/70
[2022-10-08] MEDS: INSULIN LISPRO 100 UNITS/ML SUBCUT SCH ×5 (07:50→12:50)
[2022-10-08] MEDS: BLOOD SUGAR DIAGNOSTIC STRIP TEST SCH ×3 (08:02→17:39)
[2022-10-08] MEDS: METFORMIN HCL 500MG TABLET PO SCH ×2 (08:30→09:15)
[2022-10-08] MEDS: FAMOTIDINE 20MG TABLET PO SCH (09:20)
[2022-10-08] MEDS: ENOXAPARIN 30MG/0.3ML SYR SUBCUT SCH (09:20)
[2022-10-08 11:21] LABS: HEMATOCRIT 30.5 % (42.0-52.0); HEMOGLOBIN 9.7 g/dL (14.0-18.0); MEAN CORPUSCULAR HEMOGLOBIN 26.4 pg (28.0-32.0); MEAN CORPUSCULAR VOLUME 83.1 fL (80.0-94.0); PLATELET 520 x1000/uL (130-400); RED BLOOD CELL COUNT 3.67 mill/uL (4.7-6.1); RED CELL DISTRIBUTION WIDTH 14.9 % (11.6-14.6)
[2022-10-08 11:43] LABS: CHLORIDE 106 mEq/L (98-107)
[2022-10-08] MEDS: SODIUM CHLORIDE 0.9% 1,000 ML IV SCH (12:34)
[2022-10-08] MEDS: CEFTRIAXONE 2 G in DEXTROSE 5% WATER 50 ML IV SCH (14:06)
[2022-10-08 18:18] VITALS: BP 158/90
== END 2022-10-08 18:48 | DRG 710 ==
LOC: ER 21:34 → 6EST 09-17 05:49 → EDBEDREQ 09-17 05:54 → EDBEDREQTM 09-17 05:54
PROVIDERS: ADMIT Internal Medicine; ATTEND Internal Medicine
PROC: 0Y6X0Z0 Detachment at Right 5th Toe, Complete, Open Approach (ICD-10-PCS; principal; 2022-09-18)
PROC: 0Y9M0ZZ Drainage of Right Foot, Open Approach (ICD-10-PCS; 2022-09-18)
PROC: 047R3ZZ Dilation of Right Posterior Tibial Artery, Percutaneous Approach (ICD-10-PCS; 2022-09-19)
PROC: 047P3ZZ Dilation of Right Anterior Tibial Artery, Percutaneous Approach (ICD-10-PCS; 2022-09-19)
PROC: 0Y9M0ZZ Drainage of Right Foot, Open Approach (ICD-10-PCS; 2022-09-19)
PROC: 0QBN0ZX Excision of Right Metatarsal, Open Approach, Diagnostic (ICD-10-PCS; 2022-09-19)
PROC: 0QBN0ZX Excision of Right Metatarsal, Open Approach, Diagnostic (ICD-10-PCS; 2022-09-19)
PROC: 0QBQ0ZX Excision of Right Toe Phalanx, Open Approach, Diagnostic (ICD-10-PCS; 2022-09-19)
PROC: 0QBL0ZX Excision of Right Tarsal, Open Approach, Diagnostic (ICD-10-PCS; 2022-09-19)
PROC: 02HV33Z Insertion of Infusion Device into Superior Vena Cava, Percutaneous Approach (ICD-10-PCS; 2022-09-30)
PROC: B548ZZA Ultrasonography of Superior Vena Cava, Guidance (ICD-10-PCS; 2022-09-30)
PROC: B5181ZA Fluoroscopy of Superior Vena Cava using Low Osmolar Contrast, Guidance (ICD-10-PCS; 2022-09-30)
DX: A41.9 Sepsis, unspecified organism (principal); A48.0 Gas gangrene; I70.262 Atherosclerosis of native arteries of extremities with gangrene, left leg; E11.52 Type 2 diabetes mellitus with diabetic peripheral angiopathy with gangrene; M86.171 Other acute osteomyelitis, right ankle and foot; R17 Unspecified jaundice; E11.42 Type 2 diabetes mellitus with diabetic polyneuropathy; L03.115 Cellulitis of right lower limb; L97.512 Non-pressure chronic ulcer of other part of right foot with fat layer exposed; D64.9 Anemia, unspecified; E11.621 Type 2 diabetes mellitus with foot ulcer; E11.65 Type 2 diabetes mellitus with hyperglycemia; B96.4 Proteus (mirabilis) (morganii) as the cause of diseases classified elsewhere; I10 Essential (primary) hypertension; Z20.822 Contact with and (suspected) exposure to COVID-19; E11.69 Type 2 diabetes mellitus with other specified complication; B96.1 Klebsiella pneumoniae [K. pneumoniae] as the cause of diseases classified elsewhere; Z59.00 Homelessness unspecified; Z79.4 Long term (current) use of insulin; Z86.73 Personal history of transient ischemic attack (TIA), and cerebral infarction without residual deficits; Z91.14 Patient's other noncompliance with medication regimen; Z91.199 Patient's noncompliance with other medical treatment and regimen due to unspecified reason
CPT/HCPCS: 36415; 36573; 37228; 37232; 71045; 73630; 73700; 73721; 75635; 75710; 76700; 80048; 80053; 80061; 80202; 82607; 82746; 82962; 83036; 83540; 83550; 83605; 83735; 84100; 84145; 84439; 84443; 85025; 85027; 85347; 85651; 87070; 87075; 87077; 87102; 87186; 87426; 88305; 88311; 93005; 93306; 93923; 93970; 97116; 97162; 97166; 97530; 97535; 99285; C1725; C1760; C1769; C1887; C1893; C1894; J0696; J1170; J1644; J1650; J1815; J2250; J2270; J2543; J2704; J3010; J3370; J3490; J7030; J7060; Q4051; Q9967